=== PATIENT | male | born 1950 | race Hispanic/Latino ===

== ENCOUNTER 2021-03-15 15:30 | Emergency (ER) | payer OTHER, SELFPAY ==
[2021-03-15 15:37] VITALS: BP 139/75; PULSE 65; RESP 16; TEMP 36.7; O2SAT 97
--- NOTE | 2021-03-15 15:57 | ED.URI ---
HPI - URI/Sore Throat General Chief Complaint: Upper Respiratory Infection Stated Complaint: alvares/congestion Time Seen by Provider: 03/15/21 15:46 Source: patient and RN notes reviewed Mode of arrival: ambulatory Limitations: no limitations History of Present Illness HPI Narrative: Patient presents today with a 2-day history of body aches, rhinorrhea, headache, fatigue, sore throat. Denies fever. He has been taking Tylenol with mild relief. States his daughter tested positive for COVID-19 today and he had exposure with her a few days ago. MD elicited complaint: sore throat, rhinorrhea and other (Body aches) Related Data Allergies Allergy/AdvReac Type Severity Reaction Status Date / Time No Known Allergies Allergy Verified 03/15/21 15:42 Review of Systems Review of Systems: CONSTITUTIONAL: Denies fever, chills, or sweats.+ Body aches, fatigue EYES: Denies visual changes, redness, or discharge. ENT: Denies congestion, or otalgia.+ Rhinorrhea, sore throat CARDIOVASCULAR: Denies chest pain, palpitations, or edema. RESPIRATORY: Denies cough or dyspnea. GASTROINTESTINAL: Denies abdominal pain, nausea, vomiting, or diarrhea. GENITOURINARY: Denies dysuria or hematuria. SKIN: Denies rash, itching, or wounds. MUSCULOSKELETAL: Denies back pain, joint pain, or myalgia. NEUROLOGIC: Denies numbness, tingling, or weakness.+ Headache PSYCH: Denies depression or anxiety. [facility] Past Medical History Medical History HTN (hypertension) Social History Social History Smoking status: Former smoker Smoking end date: 03/23/91 Comments At time of signature, I have reviewed and agree with nursing past medical, surgical, social and family history unless otherwise noted. Please see nursing chart for further information. There is no relevant family history pertinent to the presenting complaint Exam Narrative: GENERAL: Well-appearing, well-nourished, and in no acute distress. HEAD: Normocephalic, atraumatic. EYES: EOMI. No redness or drainage. Conjunctivae normal. ENT: Mucous membranes pink and moist. Nares clear. No rhinorrhea. TMs normal bilaterally. Throat normal. Uvula midline. NECK: Normal AROM. Supple. No lymphadenopathy. CHEST: No respiratory distress. Clear to auscultation. HEART: Regular rate and rhythm. No murmur appreciated. Normal peripheral pulses. EXTREMITIES: Normal range of motion. No edema. SKIN: Warm, dry, no rash. Capillary refill normal. Normal skin turgor. NEURO: No focal deficits. Alert and oriented x3. Gait steady. PSYCH: Normal affect. No signs of depression or anxiety. Course Vital Signs Vital signs: Vital Signs Temperature 98.1 F 03/15/21 15:37 Pulse Rate 65 03/15/21 15:37 Respiratory Rate 16 03/15/21 15:37 Blood Pressure 139/75 03/15/21 15:37 Pulse Oximetry 97 03/15/21 15:37 Temperature 98.1 F 03/15/21 15:37 Pulse Rate 65 03/15/21 15:37 Respiratory Rate 16 03/15/21 15:37 Blood Pressure 139/75 03/15/21 15:37 Pulse Oximetry 97 03/15/21 15:37 Reviewed. Pt has been instructed to follow up with his PCP regarding his elevated blood pressure today. MDM - URI/Sore Throat Differential Diagnosis Differential diagnosis: Likely upper respiratory infection, viral infection and other (COVID-19) Critical Care Time Critical Care Time Critical Care Time: No Discharge Plan Discharge Clinical Impression: Upper respiratory infection Qualifiers: URI type: unspecified URI Qualified Code(s): J06.9 - Acute upper respiratory infection, unspecified Patient Disposition: Home, Self-Care Condition: Stable Instructions: Upper Respiratory Infection (DC) Additional Instructions: Your symptoms are likely due to a viral illness, which is not treated with antibiotics. Virus symptoms can last for up to 10-14 days. Take Tylenol or ibuprofen for pain or
== END 2021-03-15 16:10 | disposition home or self-care (01) ==
PROVIDERS: Emergency Provider Nurse Practitioner; PCP Emergency Medicine
DX: J06.9 Acute upper respiratory infection, unspecified (principal); Z20.822 Contact with and (suspected) exposure to COVID-19; I10 Essential (primary) hypertension; Z87.891 Personal history of nicotine dependence
CPT/HCPCS: 99211; G0463

== ENCOUNTER 2021-08-01 06:58 | Outpatient (CLI) | payer OTHER, SELFPAY ==
--- NOTE | 2021-08-07 20:37 | WPDSLEEPSTUD ---
Sleep Study Date of Study: 08/01/21 Ordering Provider: Nahid Hughes APRN Interpreting Physician: Valerie Thayer MD Sleep Study Type: Split Polysomnogram Height: 1.68 m Weight: 83.915 kg Body Mass Index: 29.8 Neck Circumference (inches): 17 [place]: 7 Reason for Sleep Study Known obstructive sleep apnea, original diagnosis 2007, old machine is not helpful Sleep History Bienvenido Bueno is a 70 year old man with a history of obstructive sleep apnea in 2007. He has restless sleep. He has difficulty falling asleep and staying asleep. He does not awaken from sleep feeling short of breath. He occasionally awakens at night with heartburn, belching or coughing. He constantly snores and is frequently loud enough that others complain about it. He rarely has trouble sleeping with a cold. He does not wake up gasping for breath at night. He does not have breathing problems at night observed by others. He does not sweat excessively at night. He does not notice his heart pounding irregularly at night. He occasionally falls asleep in the day but never involuntarily or while driving. He does not have loss of muscle tone with strong emotion. He does not have daytime difficulties due to excessive sleepiness. He does not feel paralyzed on waking or falling asleep. He does not have vivid dreamlike scenes upon awakening or falling asleep. He does not feel afraid to go to sleep. He does not have nightmares. He occasionally remembers his dreams. He occasionally has racing thoughts. He occasionally feels sad, depressed and anxious. Does not have muscular tension. He does not notice parts of his body jerking. Does not kick at night. He denies crawling and aching feelings in his legs or any kind of leg pain at night. He does not have morning jaw pain. He does not grind his teeth during sleep. He is not bothered by pain during the day are awakened by pain at night. He occasionally wakes up feeling stiff in the morning with sore achy muscles. He does not wake up with pain in the neck and spine. He regularly takes antacids. Normal bedtime is 12 midnight, taking a different amount of time to fall asleep depending on how he feels. He wakes up during the night to use the bathroom. He wakes the morning between 630 and 7:00 a.m.. On the weekends he also goes to bed at midnight, sleeps longer until 7-9 a.m.. He takes naps in the afternoon or evening. A short nap of 10 or 15 minutes may be refreshing. He is usually drowsy for 3 hours or longer. He estimates getting 6-7 hours of sleep at night. Habits: Never smoked tobacco. Caffeine 2 cups of coffee a day. No alcohol or recreational drugs. 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 and devices Gross hematuria HTN (hypertension) Hyperglycemia Obstructive sleep apnea CAMI on CPAP Other hydrocele Skin lesion Testicular pain Varicocele present on ultrasound of scrotum Vertigo Vitamin B12 deficiency Vitamin D deficiency Social History Social History Smoking status: Former smoker Smoking end date: 03/23/90 Medications Home Medications Medication Instructions Recorded Confirmed Type cholecalciferol (vitamin D3) 1,250 See Rx Instructions .ROUTE 03/09/20 07/22/21 Rx mcg (50,000 unit) capsule .COMPLEX #12 cap losartan 100 mg tablet See Rx Instructions .ROUTE 04/17/20 07/22/21 Rx .COMPLEX #90 tablet simvastatin 10 mg tablet See Rx Instructions .ROUTE 04/17/20 07/22/21 Rx .COMPLEX #90 tablet temazepam 15 mg capsule 15 mg PO QHS PRN #30 cap 05/21/21 07/22/21 Rx Sleep Procedure This test was performed using the [employer] multiple channel system including EOG, EEG, submental EMG, EKG, nasal and oral airflow us
[2021-08-12 10:46] VITALS: BMI 29.8
== END 2021-08-02 07:04 | disposition home or self-care (01) ==
LOC: ANHCSM 07:00
PROVIDERS: PCP Emergency Medicine; Visit Provider Nurse Practitioner Family
DX: G47.33 Obstructive sleep apnea (adult) (pediatric) (principal)
CPT/HCPCS: 95811